=== PATIENT | male | born 1965 | race Caucasian/White ===

== ENCOUNTER 2018-11-05 01:00 | Inpatient (IN) | payer BC ==
[2018-11-05] VITALS (8 sets, daily range): BP systolic 109–141; BP diastolic 60–80
[~2018-11-05] VITALS: Ht 177.8 cm; Wt 88.5 kg
[2018-11-05 01:28] LABS: BASOPHILS # (AUTO) 0.1 (0.0-0.1); BASOPHILS % 0.9 % (0.0-1.0); EOSINOPHILS # (AUTO) 0.6 (0.0-0.4); EOSINOPHILS % 4.1 % (0.0-6.0); HEMATOCRIT 45.7 % (38.2-49.6); HEMOGLOBIN 17.1 g/dL (14.0-18.0); LYMPHOCYTES # (AUTO) 3.6 (1.0-3.2); LYMPHOCYTES % 26.6 % (18.0-39.1); MEAN CORPUSCULAR HEMOGLOBIN 32.6 pg (28-32); MEAN CORPUSCULAR HGB CONC 37.4 g/dL (31-35); MEAN CORPUSCULAR VOLUME 87.2 fL (81-99); MONOCYTES # (AUTO) 1.2 (0.2-0.8); MONOCYTES % 8.6 % (4.4-11.3); NEUTROPHILS % 59.5 % (38.7-80.0); PLATELET COUNT 271 x10e3/uL (140-360); RED BLOOD COUNT 5.24 x10e6/uL (4.3-5.7); RED CELL DISTRIBUTION WIDTH 12.9 % (11.7-14.4)
[2018-11-05] MEDS ORDERED: ASPIRIN 81 MG CHEW TAB PO ONE (01:30)
[2018-11-05 01:47] LABS: ALANINE AMINOTRANSFERASE 37 IU/L (0-55); ALBUMIN 3.9 g/dL (3.5-5.0); ALBUMIN/GLOBULIN RATIO 1.1 (0.8-2.0); ALKALINE PHOSPHATASE 94 IU/L (40-150); ANION GAP 14.9 mmol/L (8-16); BLOOD UREA NITROGEN 10 mg/dL (7-26); BUN/CREATININE RATIO 11 (6-25); CALCIUM 9.1 mg/dL (8.4-10.2); CARBON DIOXIDE 24 mmol/L (22-29); CHLORIDE 106 mmol/L (98-107); CREATINE KINASE 49 IU/L (30-200); EST GLOMERULAR FILTRATION RATE > 60 ML/MIN (60-); GLUCOSE 96 mg/dL (74-118); POTASSIUM 3.9 mmol/L (3.5-5.1); SODIUM 141 mmol/L (136-145)
[2018-11-05 01:51] LABS: CREATINE KINASE MB < 1.00 ng/mL (0-4.3)
--- NOTE | 2018-11-05 02:23 | NUR ---
RESTING WITH EYES CLOSED, EASILY AROUSED, NAD NOTED. FAMILY AT BEDSIDE
--- NOTE | 2018-11-05 02:29 | Diagnostic Imaging Report ---
EXAMINATION: Head CT without contrast. HISTORY:Right upper extremity numbness. COMPARISON:None. TECHNIQUE: Multidetector axial images were obtained from the foramen magnum to the vertex without contrast. The images were reconstructed using brain and bone algorithms. Thin section brain images were reformatted into coronal and sagittal planes. Dose modulation, iterative reconstruction, and/or weight based adjustment of the mA/kV was utilized to reduce the radiation dose to as low as reasonably achievable. Intravenous contrast: None IMAGE QUALITY: Suboptimal evaluation particularly of the skull base and posterior fossa structures due to streak artifacts. FINDINGS: Skull/scalp: No lytic or blastic. lesions. No surgical changes. Parenchyma: Focal hypodensity in right caudate head represents old lacunar infarct. No acute hemorrhage, mass or acute major vascular territorial infarct. Arteries: No density suggestive of thrombosis. Dural sinuses: No abnormal density suggestive of thrombosis. Ventricles: No hydrocephalus or displacement. Extra-axial spaces: No abnormal density. Brain volume: Normal for age. Craniocervical junction: No mass, Chiari malformation, or basilar invagination. Sella: No mass. Paranasal/mastoid sinuses: Imaged portions unremarkable. IMPRESSION: No acute intracranial abnormality, particularly no acute hemorrhage, mass or acute major vascular territorial infarct. Old lacunar infarct in right caudate head. Signed by: Dr. Taylor Bobby M.D. on 11/05/2018 2:25 AM
--- NOTE | 2018-11-05 02:33 | Diagnostic Imaging Report ---
History: Right upper extremity numbness. Comparison studies: None Technique: Axial images were obtained through the cervical region.. Coronal and sagittal images reconstructed from the axial data. Dose modulation, iterative reconstruction, and/or weight based adjustment of the mA/kV was utilized to reduce the radiation dose to as low as reasonably achievable. Intravenous contrast: None Findings: Fractures: None. Soft tissue injuries: None. Atlantoaxial articulation: Intact. Alignment: Loss of normal cervical lordosis is either positional or due to muscle spasm. No scoliosis. Cervicomedullary junction: No abnormalities. The foramen magnum is patent. Soft tissues: No abnormalities. Vertebrae: 6 mm well-corticated osseous fragments superior to the tip of the odontoid process may represent a sequelae of prior trauma/os odontoideum. No fractures, infection or neoplasm. Degenerative changes: C3-C4: Bilateral mild facet arthrosis without significant foraminal stenosis. No significant canal or foraminal stenosis. IMPRESSION: 1. No acute cervical spine fracture or dislocation. Loss of normal cervical lordosis is either positional or due to muscle spasm. 2. Ligament, spinal cord and or vascular abnormalities cannot be excluded on the basis of this examination. Signed by: Dr. Taylor Bobby M.D. on 11/05/2018 2:29 AM
--- NOTE | 2018-11-05 03:01 | NUR ---
attempted to call report without success
--- NOTE | 2018-11-05 03:30 | NUR ---
RECEIVED PATIENT FROM ER, AAOX4, AMBULATORY STEADY GAIT. RESP EVEN AND UNLABORED, RA. LUNGS CLEAR TO AUSCULTATION. SKIN INTACT. PULSES INTACT. NO EDEMA NOTED. DENIES PAIN. ADMITTED FOR RIGHT UPPER EXTREMITY WEAKNESS & NUMBNESS. BILAT. 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 TELE #22 SB 57 TO SR 63. PATENT IV TO LEFT FA 20G. UPDATED PATIENT TO PLAN OF CARE, VERBALIZED UNDERSTANDING. BED LOCKED, LOWEST POSITION, CALL LIGHT WITHIN EASY REACH. WILL CONTINUE TO MONITOR THE PATIENT CLOSELY.
[2018-11-05] MEDS ORDERED: MELATONIN3 MG PO (04:38)
--- NOTE | 2018-11-05 07:14 | NUR ---
Received patient and walking rounds complete. Patient awake resting in bed at this time, no signs of distress. Bed in lowest position, wheels locked, side rails up x2, call light in reach. at bedside. Will continue to monitor.
[2018-11-05 07:22] LABS: CHOL/HDL RATIO 5.3 (3.9-4.7)
--- NOTE | 2018-11-05 09:47 | NUR ---
Patient A/O X3, respirations even and unlabored on RA. Bowel sounds active, last BM 11/04/18. No complaint of pain at this time. Severe weakness in RUE. Patient states that he has tingling in RUE. Unsteady gait at this time. Skin intact and no edema. Left FA 20 gauge IV SL. Will continue to monitor.
--- NOTE | 2018-11-05 11:01 | NUR ---
Patient went to MRI at this time. No unsteady gait at the time of transfer to wheelchair.
[2018-11-05] MEDS ORDERED: LORAZEPAM INJ 2 MG/ML VIAL IV NR (11:30)
--- NOTE | 2018-11-05 12:48 | NUR ---
Patient returned from MRI
--- NOTE | 2018-11-05 14:58 | Diagnostic Imaging Report ---
[facility] 1965 Accession number: [id number] MRI BRAIN WO HISTORY: Right arm numbness COMPARISON: Head CT 11/05/2018 at 144 TECHNIQUE: Sagittal T2, axial T2, axial T1, axial T2/FLAIR, axial gradient echo (or susceptibility weighted), coronal T2/FLAIR, and axial diffusion weighted MR images of the brain were obtained without contrast. DISCUSSION: Scalp/bone marrow: Unremarkable. Brain sulci: Appropriate for patient's age. Ventricles: Normal in size and configuration. No hydrocephalus. Extra-axial spaces: No masses or fluid collections. Parenchyma: Multiple small juxtacortical foci of diffusion restriction (bright on DWI, dark on ADC) along the upper left perirolandic region and left centrum semiovale compatible with acute ischemia. This is in the left MCA-NATHAN external border zone. No other diffusion restricting abnormalities. A few scattered T2/FLAIR hyperintense foci throughout the supratentorial white matter are likely chronic microvascular ischemic changes. There is an old lacunar infarct in the right benz radiata. There is also an old lacunar infarct in the right frontal deep white matter. Otherwise, no mass or hemorrhage. Vessels: Normal flow voids in major arteries and veins. Sellar/Suprasellar region: No abnormalities. Craniocervical junction: No abnormalities. Incidental findings: Mild bilateral ethmoid air cell mucosal thickening is present. IMPRESSION: 1. Multifocal juxtacortical acute watershed ischemia along the upper left perirolandic region and left centrum semiovale (left MCA-NATHAN external border zone). 2. Mild supratentorial chronic microvascular ischemic change. 3. Old right benz radiata and right frontal deep white matter lacunar infarcts. Signed by: Dr. Adam Gilliland M.D. on 11/05/2018 2:54 PM
--- NOTE | 2018-11-05 14:58 | Diagnostic Imaging Report ---
Pelon [place] : 1965 Accession number: [id number] MRA CAROTID WO CONTRAST HISTORY: Right arm numbness COMPARISON: Concurrent MRI of the brain, head CT 11/05/2018 TECHNIQUE: Axial 2-D cervical intracranial [id number]-zcyzov MRA images were obtained without contrast. Maximum intensity projection images were created. If present, any cervical carotid stenosis will be measured as a percentage relative to the [place] artery distal to the stenosis. FINDINGS: Right Carotid: No flow abnormalities. Left Carotid: No flow abnormalities. Right vertebral artery: No flow abnormalities. Left vertebral artery: No flow abnormalities. IMPRESSION: No cervical MRA abnormalities. Signed by: Dr. Adam Gilliland M.D. on 11/05/2018 2:54 PM
--- NOTE | 2018-11-05 14:58 | Diagnostic Imaging Report ---
Pelon [place] : 1965 Accession number: [id number] MRI CERV SPINE W/O HISTORY: Right arm numbness COMPARISON: Cervical spine CT 11/05/2018 TECHNIQUE: Sagittal T1, sagittal T2, sagittal inversion recovery, axial T2, axial T1, and axial T2 GRE weighted MR images of the cervical spine were obtained without intravenous contrast. Motion artifacts obscure some details. DISCUSSION: Alignment: Slight straightening of the cervical lordosis. No scoliosis. Vertebrae: No definite evidence for fractures, infection, or neoplasm. Cervicomedullary junction: No abnormalities. Spinal cord: Normal in signal and morphology from the foramen magnum through T2-T3. Soft tissues: No signal abnormalities. Mild multilevel disc degeneration is present without significant canal or foraminal stenosis. Mild to moderate atlantoaxial arthrosis is present as well. IMPRESSION: 1. No acute osseous abnormality. 2. Mild multilevel disc degeneration without significant canal or foraminal stenosis. Signed by: Dr. Adam Gilliland M.D. on 11/05/2018 2:55 PM
--- NOTE | 2018-11-05 14:58 | Diagnostic Imaging Report ---
Pelon Canada : 1965 Accession number: [id number] MRA HEAD WO CONTRAST HISTORY: Right arm numbness COMPARISON: Concurrent MRI of the brain and MRA of the neck TECHNIQUE: Axial 3D intracranial [id number] MRA images were obtained without contrast. Maximum intensity projection images were created. FINDINGS: Carotid arteries: No flow abnormalities in the intracranial internal carotid arteries. Normal A1 and M1 segments. Vertebrobasilar Circulation: Right vertebral artery: No flow abnormalities. Left vertebral artery: No flow abnormalities. Basilar artery: No flow abnormalities. Posterior cerebral arteries: No flow abnormalities. Normal Variants: ACom: Not clearly visualized. PComs: Not visualized. Vertebral arteries: Co-dominant. IMPRESSION: No intracranial MRA abnormalities. Signed by: Dr. Adam Gilliland M.D. on 11/05/2018 2:54 PM
[2018-11-05] MEDS ORDERED: ENOXAPARIN SOD INJ 40 MG/0.4 ML SYR SC SCH (17:00)
[2018-11-05] MEDS: FAMOTIDINE 20 MG TAB PO SCH (17:04)
[2018-11-05] MEDS ORDERED: SODIUM CHLORIDE 0.9% 100 ML 100 ML ONE (17:16)
[2018-11-05] MEDS ORDERED: IOPAMIDOL 370 MG/ML 200 ML INFUS..BTL INJ ONE (17:16)
--- NOTE | 2018-11-05 17:51 | Consultation ---
DATE OF CONSULTATION: November 05, 2018 NEUROLOGY CONSULTATION HISTORY OF PRESENT ILLNESS: Mr. Canada is a 52-year-old right hand dominant man with past medical history significant for a prior history of hyperlipidemia as well as a questionable myocardial infarction in 2007, admitted to [facility] on November 05, 2018 with symptoms suspicious for a stroke. Beginning on November 03, 2018, the patient began to experience intermittent numbness affecting the 4th and 5th digits of the right hand. When present, the numbness would last for a few minutes at a time. Some time between 1800 and 1900 on November 04, 2018, the patient experienced the sudden onset of weakness affecting the right hand. Specifically, Mr. Canada report difficulty extending and flexing his fingers. The patient's , who is at the bedside, reports right arm weakness as well. She says his arm seemed to flail when he moved it. She reports the patient dropping items frequently from his right hand as well. Mr. Canada reports numbness affecting all fingers of the right hand as well as tingling in the same distribution. Subsequently, the patient's noted Mr. Canada was having some difficulty with walking. She reports he appeared to be dragging his right leg behind him. After these symptoms persisted for a few hours, the patient proceeded to the emergency center at [facility] for further evaluation of his symptoms. Upon arrival in the emergency center, the patient was afebrile with a blood pressure of 156/87 mmHg and a pulse of 61 beats per minute. Patient's neurological examination was documented as showing claw hand on the right, unable to make fist, soft compartments. A CT of the brain without contrast was performed while the patient was in the emergency center. This study did not show evidence of recent large territorial ischemia or hemorrhage. Mr. Canada was admitted to [facility] as an inpatient for further evaluation of his symptoms. The patient does not report experiencing similar symptoms previously. He is not currently taking antiplatelet or anticoagulant medication on a daily basis. REVIEW OF SYSTEMS: Weakness of the right arm and leg, numbness and tingling of the right arm and leg, impairment of balance and gait. Otherwise, the 12-point review of systems is negative. PAST MEDICAL HISTORY: Prior history of hyperlipidemia, questionable prior myocardial infarction in 2007. PAST SURGICAL HISTORY: Cardiac catheterizations in 2007, vasectomy in 2001, tonsillectomy. PAST HOSPITALIZATIONS: Surgeries/procedures as listed, chest pain. FAMILY MEDICAL HISTORY: The patient's paternal and maternal grandparents are . Their medical histories are unknown. The patient's father is from coronary artery disease with myocardial infarctions. Mr. Canada's mother is alive. She has hypertension, congestive heart failure, emphysema, chronic obstructive pulmonary disease, and osteoporosis. The patient had 4 siblings, 3 brothers and 1 sister. One brother is from coronary artery disease with a myocardial infarction. The remaining 2 brothers are alive and both have hypertension. One brother has heart disease as well. The patient's sister is alive and has hypertension and chronic obstructive pulmonary disease. Mr. Canada has 2 children, a son and a daughter, both of whom are alive and healthy. SOCIAL HISTORY: The patient is . 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 The patient does report current tobacco use. He previously smoked cigarettes 1 pack per day. Over the last 1 to 2 years, the patient has began to smoke cigars 2 per day. Overall, the patient has been approximately [id number] history of tobacco use. Mr. Canada reports occasional alcohol use. He does not report current or prior recreational drug use. HOME MEDICATIONS: Melatonin 9 mg by mouth at bedtime as needed for insomnia. ALLERGIES: PENICILLIN. NO KNOWN FOOD ALLERGIES. NO KNOWN ALLERGIES TO LATEX. NO KNOWN ALLERGIES TO IODINE OR OTHER CONTRAST MATERIALS. PHYSICAL EXAMINATION VITAL SIGNS: Height 70 inches, weight 199 pounds, BMI 28.6 kg per meter squared. Blood pressure 128/66 mmHg, pulse 56 beats per minute, respiratory rate 18 breaths per minute, oxygen saturation 96% on room air. GENERAL: The patient is awake and alert, does not appear distressed. Overweight. HEENT: Normocephalic, atraumatic. Pupils are equal, round, and reactive to light. Moist mucous membranes. NECK: Supple. No appreciable thyromegaly. Possible left carotid bruit. CARDIOVASCULAR: S1, S2, regular rate and rhythm. No murmurs, rubs, or gallops. RESPIRATORY: Clear to auscultation bilaterally. No wheezes, rhonchi, or rales. EXTREMITIES: Skin is warm and dry. No clubbing, cyanosis, or edema. The posterior tibial and dorsalis pedis pulses are 2+ and symmetric. SKIN: No rashes or lesions. NEUROLOGIC Memory/Attention: The patient is awake and alert, oriented to person, place, time, and situation. Cranial Nerves: Cranial nerve 1 - Not tested. Cranial nerve II, III, IV, and - Pupils are equal and round, react briskly to light (from 4 mm to 2 mm). Extraocular movements intact. No nystagmus. Cranial nerve V - Sensation to light touch and pinprick is intact in the bilateral V1 through V3 distributions. Strength of the temporalis and masseter muscles is within normal limits. Cranial nerve VII - The face is symmetric as are all facial movements. Strength is within normal limits. Cranial nerve VIII - Hearing is intact to finger rub bilaterally. Cranial nerve IX, X - The soft palate elevates equally and symmetrically. Cranial nerve XI - Normal strength of the bilateral sternocleidomastoid and trapezius muscles. Cranial nerve XII - The tongue protrudes midline and moves symmetrically from side to side. Strength: Bulk is normal. Strength is 5/5 in the bilateral deltoids, biceps, triceps, wrist flexors and extensors, finger flexors and extensors, intrinsic hand muscles, hip flexors, knee flexors and extensors, ankle dorsiflexion and plantar flexion, and intrinsic foot muscles except as follows: The right biceps is 4/5, the right triceps is 3+/5, right wrist flexors are 3+/5, right wrist extensors are 3/5, right finger flexors are 3+/5, right finger extensors are 3/5. Tone is normal. DTRs: Deep tendon reflexes are 2+ at the left triceps, biceps, brachioradialis, patella, and Achilles. Deep tendon reflexes are 3+ at the right triceps, biceps, brachioradialis, patella, and Achilles. Plantar responses are flexor bilaterally. Sensation: Sensation is intact to light touch and pinprick in the left arm and left leg. There is tingling to light touch and pinprick over the right arm and right leg. Cerebellar: Umacjr-gjwq-zvksda movements are mildly impaired in the right arm, but within the bound of paresis. Otherwise, ovmnmz-ppcd-xlupwc and heel-robbins movements are intact without dysmetria or other impairment. Gait: Deferred. Speech: Spontaneous speech is normal without appreciable dysarthria or aphasia. Repetition is not intact. Involuntary Movements: None. Pronator Drift: Subtle in the right hand and arm. LABORATORY DATA: The patient's comprehensive metabolic panel is within normal limits. His hemoglobin A1c is 5.1. Total cholesterol 180, triglycerides 245, LDL cholesterol 97, HDL cholesterol 34. Vitamin B12 of 47. The CBC with differential and platelets reveals an elevated white blood cell count of 13.36 with a normal differential. The hemoglobin and hematocrit are 17.1 and 45.7. The platelet count is 271. DIAGNOSTIC STUDIES: CT of the brain without contrast on November 05, 2018: On my review, there is no evidence of recent large territorial ischemia, hemorrhage, mass, or mass effect. Prior lacunar infarct is seen in the right caudate head. Cerebral volumes are appropriate for age. There are findings suggestive of mild chronic small vessel ischemic disease. CT of the cervical spine on November 05, 2018: 1. No acute cervical spine fracture or dislocation. Loss of normal cervical lordosis is either positional or due to muscle spasm. 2. Ligament, spinal cord, and/or vascular abnormalities cannot be excluded on the basis of this examination. MRI of the brain without contrast: On my review, there is evidence of an acute ischemic stroke in the left anterior middle cerebral artery distribution. Prior lacunar strokes are seen in the right caudate head as well as the right posterior frontal region. Cerebral volumes are appropriate for age. There are few scattered T2/FLAIR hyperintense foci in the supratentorial deep white matter compatible with mild chronic small vessel ischemic disease. MRA of the brain and neck without contrast on November 05, 2018: On my review, there is an intra and extracranial atherosclerosis with possible hemodynamically significant stenosis, especially of the left internal carotid artery. MRI of the cervical spine without contrast on November 05, 2018: On my review, there is no evidence of acute fracture or subluxation. There is mild multilevel degenerative disk disease without spinal canal stenosis or neural foraminal narrowing. Echocardiogram on November 05, 2018: Ejection fraction 65% to 70%. Trace tricuspid regurgitation. ASSESSMENT AND PLAN: Mr. Canada is a 52-year-old right hand dominant man with past medical history significant for a prior history of hyperlipidemia, a questionable prior myocardial infarction in 2007, and tobacco use, admitted with an acute ischemic stroke in the left anterior middle cerebral artery distribution with cortical involvement. The patient's neurological examination is significant for mild weakness of the left hand and arm, brisk deep tendon reflexes over the right hemibody, and distortion of sensation over the right arm and leg. The patient's laboratory data and other diagnostic studies have been reviewed and are documented above. RECOMMENDATIONS 1. Follow up the results of pending MRI studies. 2. An electrocardiogram will be ordered to complete a stroke evaluation. 3. A CTA of the brain and neck with contrast will be ordered for further evaluation of intra and extracranial atherosclerosis with possible hemodynamically significant stenosis. 4. Aspirin 325 mg by mouth daily will be prescribed for stroke prophylaxis. 5. There is no prior history of hypertension. Monitor the patient's vital signs per unit protocol. 6. The patient's goal total cholesterol is less than 200 with a LDL of less than 70. The patient's LDL is 97. I agree with treatment with atorvastatin 40 mg by mouth at bedtime daily. A lipid panel should be redrawn in 8 weeks. 7. The patient's goal hemoglobin A1c is less than 7.0. The patient's hemoglobin A1c is 5.1. Tight glycemic control is recommended while the patient is in the hospital. 8. A speech therapy consultation will be deferred as the patient has no deficits in either speech or cognition. A physical therapy consultation has been ordered and is pending. Mr. Canada will require occupational therapy once discharged from the hospital. 9. GI prophylaxis with Pepcid 20 mg by mouth twice daily with meals. DVT prophylaxis with Lovenox 40 mg subcutaneously daily. 10. Smoking cessation counseling was provided to the patient. 11. Defer treatment of the remaining medical comorbidities to the primary and other services following the patient. Thank you for this consultation. I will continue to follow the patient while he remains in the hospital. TIME SPENT: 70 minutes. Job#: [id number] ELPIDIO AUGUSTINE
--- NOTE | 2018-11-05 18:35 | Diagnostic Imaging Report ---
CTA BRAIN, CTA NECK HISTORY: Right-sided numbness COMPARISON: MRI of the brain and MRA of the head/neck from earlier today TECHNIQUE: CTA of the head and neck was performed with intravenous iodine based contrast. Coronal, sagittal, 3-D, and oblique maximum intensity projection reformations were created. One or more of the following dose reduction techniques were used: Automated exposure control, adjustment of the mA and/or kV according to patient size, and/or utilization of iterative reconstruction technique. 100 mL of Isovue-370 were administered. DISCUSSION: If present, any cervical carotid stenosis will be measured as a percentage relative to the [place] artery distal to the stenosis. CERVICAL CTA: Right Carotid: There is mild noncalcified plaque at the right carotid bulb without significant stenosis. Left Carotid: Patent, no abnormalities. Right vertebral artery: Patent, no abnormalities. Left vertebral artery: Patent, no abnormalities. INTRACRANIAL CTA: Carotid arteries: Minimal bilateral carotid siphon calcification is present without significant stenosis. No abnormalities in the A1 or M1 segments. Vertebrobasilar Circulation: Right vertebral artery: Patent, no abnormalities. Left vertebral artery: Patent, no abnormalities. Basilar artery: Patent, no abnormalities. Posterior cerebral arteries: Patent, no abnormalities. Normal Variants: ACom: Patent. PComs: Patent on the right. Not visualized on the left. Vertebral arteries: Co-dominant. The major dural venous sinuses are grossly patent. Additional findings: The lingual tonsils are prominent. There are mild to moderate degenerative changes throughout the spine. IMPRESSION: 1. Mild right carotid bulb noncalcified plaque without significant stenosis. 2. Minimal bilateral carotid siphon calcification without significant stenosis. 3. No other cervical or intracranial CTA abnormalities. No large vessel occlusion. Signed by: Dr. Adam Gilliland M.D. on 11/05/2018 6:31 PM
--- NOTE | 2018-11-05 19:24 | NUR ---
RECEIVED PATIENT AAOX3, AT BEDSIDE. ORIENTED TO SELF. UPDATED TO PLAN OF CARE. AT THIS TIME NO NEEDS VOICED. BED LOCKED AND IN LOWEST POSITION, CALL LIGHT WITHIN EASY REACH. WILL CONTINUE TO MONITOR PATIENT.
[2018-11-05] MEDS ORDERED: ATORVASTATIN 40 MG TAB PO SCH (21:00)
[2018-11-06 00:57] VITALS: BP 126/57
--- NOTE | 2018-11-06 01:29 | History and Physical ---
CHIEF COMPLAINT: This is a 52-year-old male, who comes in with right hand and arm weakness and numbness. HISTORY OF PRESENTING ILLNESS: This is . 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 The patient had a similar symptom about a week ago, which rapidly dissipated yesterday. Last night, the patient had the same symptoms, came home and reportedly was confused and was not coherent, drove home by himself. The patient was not able to control his right upper extremities and came into the emergency room and was admitted to rule out CVA. PAST MEDICAL HISTORY: No significant history. MEDICATIONS: Melatonin. PAST SURGICAL HISTORY: Vasectomy. SOCIAL HISTORY: Positive for smoking cigars about 2 a day. No ETOH. No IV drug abuse. REVIEW OF SYSTEMS: Negative for chest pain. No shortness of breath. No nausea, vomiting, or diarrhea. No constipation. No rectal bleeding. No hematochezia. No hematemesis. Positive for headache. No diplopia. No blurry vision. Positive for paresthesias in the right upper extremities, also in the lower extremities as time to time, the patient does complain of numbness in the lower extremities, especially the right on crossing his legs and this has been happening for years. PHYSICAL EXAMINATION VITAL SIGNS: Temperature is 96.6, pulse of 63, respirations 18, blood pressure is 141/80, pulse oximetry is 97% on room air. HEENT: Normocephalic. Pupils are reactive to light and accommodation. NECK: No JVD present. No carotid bruit present either. CVS: S1, S2 normal. Regular rate and rhythm. ABDOMEN: Nontender and nondistended. EXTREMITIES: No clubbing. No cyanosis. No edema. NEUROLOGIC: Alert and oriented x3. Mood and affect is normal. Speech is normal. Cranial nerve normal. No cerebellar signs. Positive for sensory and motor deficit in the right upper extremities. 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 Reflexes are hyperreflexic in the right side; otherwise normal. Deficit is also noted in the forearm area too. IMAGING STUDIES: Initial CT of the brain shows no acute intracranial abnormalities, particularly no acute hemorrhage, mass, or acute major vascular territorial effect. C-spine shows 6 mm well-corticoid osseous fragments . No fractures. Degenerative changes in C3 and C5 and no acute cervical spine fracture or dislocation seen and also loss of normal cervical lordosis also seen. LABORATORY VALUES: White count is 13,000, hemoglobin is 17.1, hematocrit 45.7, slight left shift is present. Chemistry; sodium 141, potassium 3.9, BUN of 10, creatinine of 0.90. ALT and AST all normal. ASSESSMENT AND PLAN: Right hand paresthesias with loss of function. Plan is to do an MRA of the brain, MRI of the C-spine with contrast. We will also complete stroke workup including an echocardiogram and also MRI of the neck. We will also consult Dr. Tatyana Chowdhury, possible consult with in lieu of his paresthesias in the upper extremities. Further recommendation per clinical course. We will continue monitoring the patient. The patient has been constantly smoking and healthy lifestyle. Job#: [id number] HENRIQUE
[2018-11-06 04:00] VITALS: BP 108/67
--- NOTE | 2018-11-06 04:22 | NUR ---
patient aaox3, standby assist to restroom. denies any needs at this time. denies any pain. assisted back to bed. bed locked and in lowest position, call light within easy reach. will continue to monitor the patient.
[2018-11-06 05:44] LABS: BASOPHILS # (AUTO) 0.1 (0.0-0.1); BASOPHILS % 0.6 % (0.0-1.0); EOSINOPHILS # (AUTO) 0.5 (0.0-0.4); EOSINOPHILS % 4.1 % (0.0-6.0); HEMATOCRIT 47.6 % (38.2-49.6); HEMOGLOBIN 16.3 g/dL (14.0-18.0); LYMPHOCYTES # (AUTO) 3.1 (1.0-3.2); LYMPHOCYTES % 27.5 % (18.0-39.1); MEAN CORPUSCULAR HEMOGLOBIN 30.8 pg (28-32); MEAN CORPUSCULAR HGB CONC 34.2 g/dL (31-35); MONOCYTES # (AUTO) 1.2 (0.2-0.8); MONOCYTES % 10.2 % (4.4-11.3); NEUTROPHILS # (AUTO) 6.5 (2.1-6.9); NEUTROPHILS % 57.2 % (38.7-80.0); PLATELET COUNT 293 x10e3/uL (140-360); RED BLOOD COUNT 5.29 x10e6/uL (4.3-5.7); RED CELL DISTRIBUTION WIDTH 12.9 % (11.7-14.4)
[2018-11-06 06:16] LABS: ALANINE AMINOTRANSFERASE 38 IU/L (0-55); ALBUMIN 3.7 g/dL (3.5-5.0); ALBUMIN/GLOBULIN RATIO 1.2 (0.8-2.0); ALKALINE PHOSPHATASE 92 IU/L (40-150); BLOOD UREA NITROGEN 11 mg/dL (7-26); BUN/CREATININE RATIO 10 (6-25); CALCIUM 9.2 mg/dL (8.4-10.2); CARBON DIOXIDE 25 mmol/L (22-29); CHLORIDE 106 mmol/L (98-107); CREATININE, SERUM 1.08 mg/dL (0.72-1.25); EST GLOMERULAR FILTRATION RATE > 60 ML/MIN (60-); GLUCOSE 122 mg/dL (74-118); MAGNESIUM 2.6 MG/DL (1.3-2.1); SODIUM 141 mmol/L (136-145)
[2018-11-06 08:04] VITALS: BP 123/68
[2018-11-06] MEDS: FAMOTIDINE 20 MG TAB PO SCH (08:30)
[2018-11-06 08:46] VITALS: BP 123/68
[2018-11-06] MEDS ORDERED: ASPIRIN 325 MG TAB EC PO SCH (09:00)
--- NOTE | 2018-11-06 10:45 | NUR ---
ASSESSMENT: Spiritual concern Pt curious about future. Pt states he isn't certain of what's next to come. Pt hopeful for soon d/c and recovery. Pt's at bedside. Intervention: Provided empathic listening. Facilitated illness review. Provided information on how to reach appraisal manager, if needed. Outcome: Pt expressed appreciation for visit. CARIN OGDEN Fish Cleaner Machine Tender Spiritual Care Department O: [phone] Pager: [phone] ([phone] number calling from)
--- NOTE | 2018-11-06 11:41 | NUR ---
PT REPORTED "NUMBNESS TO RIGHT EYE AND SIDE OF FACE, CHEEK", INTERMITTENT, "CAME AND WENT ", EDUCATED TO NOTIFY NURSE IF HAPPENS AGAIN
--- NOTE | 2018-11-06 11:48 | NUR ---
AMBULATING WITH PHYSICAL THERAPIST AT THIS TIME
[2018-11-06 12:42] VITALS: BP 143/74
--- NOTE | 2018-11-06 12:42 | NUR ---
MD DRUMMOND INTO SEE PT, DISCUSSED POC, SPOKE WITH MD DAWSON, MADE AWARE THAT MD DRUMMOND IS OKAY TO DISCHARGE, ORDERS NOTED Addendum: 11/06/18 at 1354 by Katrin Torres RN MD DRUMMOND AWARE OF PT C/O NUMBNESS TO FACE AND EYE, NO NEW ORDERS
[2018-11-06] MEDS ORDERED: ASPIRIN325 MG PO (13:15)
[2018-11-06] MEDS ORDERED: ATORVASTATIN CA20 MG PO (13:15)
--- NOTE | 2018-11-06 13:57 | NUR ---
DISCHARGE INSTRUCTIONS REVIEWED WITH PT, VERBALIZED UNDERSTANDING, AWAITING RIDE
--- NOTE | 2018-11-06 16:02 | NUR ---
DISCHARGE INSTRUCTIONS REVIEWED WITH PT AND FAMILY, VERBALIZED UNDERSTANDING, WHEELED OFF UNIT VIA WC, NO CHANGE IN CONDITION
== END 2018-11-06 14:47 | disposition home or self-care (01) | DRG 66 ==
LOC: ER 01:00 → ERHOLD 02:36 → INTOOBSV 02:36 → MED/SURG 03:28 → OBSVTOIN 11-06 12:31
PROVIDERS: ADMIT Internal Medicine; ATTEND Internal Medicine
DX: I63.512 Cerebral infarction due to unspecified occlusion or stenosis of left middle cerebral artery (principal); G83.24 Monoplegia of upper limb affecting left nondominant side; R20.8 Other disturbances of skin sensation; E78.5 Hyperlipidemia, unspecified; F17.290 Nicotine dependence, other tobacco product, uncomplicated; I25.2 Old myocardial infarction; Z79.82 Long term (current) use of aspirin; Z88.0 Allergy status to penicillin; Z28.21 Immunization not carried out because of patient refusal
CPT/HCPCS: 36415; 70450; 70496; 70498; 70540; 70544; 70551; 72125; 72141; 80053; 80061; 82550; 82553; 82607; 83036; 83735; 84484; 85025; 93005; 93306; 99284; G0378; J1650; J2060; Q9967

== ENCOUNTER → 2018-12-07 | Outpatient (RCR) | payer BC ==
[~2018-12-07] MED LIST: ASPIRIN325 MG PO; ATORVASTATIN CA20 MG PO; MELATONIN3 MG PO
== END ==
LOC: PT 11-13 10:02 → OT 11-14 14:54 → PT 11-27 15:50 → OT 12-01 10:00 → PT 12-05 09:42 → OT 12-06 14:58 → PT 10:00
PROVIDERS: ATTEND Psychiatry & Neurology Clinical Neurophysiology
DX: I63.512 Cerebral infarction due to unspecified occlusion or stenosis of left middle cerebral artery (principal); G83.24 Monoplegia of upper limb affecting left nondominant side; R20.8 Other disturbances of skin sensation

== ENCOUNTER 2018-12-15 09:00 | Outpatient (RCR) | payer BC | END 2019-01-07 | LOC: OT 09:00 | PROVIDERS: ATTEND Psychiatry & Neurology Clinical Neurophysiology | DX: I69.851 Hemiplegia and hemiparesis following other cerebrovascular disease affecting right dominant side (principal); I69.351 Hemiplegia and hemiparesis following cerebral infarction affecting right dominant side; M62.81 Muscle weakness (generalized) | CPT/HCPCS: 97139 ==

== ENCOUNTER → 2018-12-20 | Outpatient (CLI) | payer BC ==
[2018-12-20 12:10] LABS: CHOL/HDL RATIO 3.3 (3.9-4.7)
== END ==
LOC: LAB 11:32
PROVIDERS: ATTEND Psychiatry & Neurology Clinical Neurophysiology
DX: I63.312 Cerebral infarction due to thrombosis of left middle cerebral artery (principal)
CPT/HCPCS: 36415; 80061

== ENCOUNTER → 2019-03-27 | Day surgery (SDC) | payer BC ==
[~2019-03-27] MED LIST changes: +BUPIVACAINE HCL 0.5% INJ 30 ML VIAL INJ ONE; +CLINDAMYCIN PHOS 900MG/ 50ML 50 ML IV ONE; +DEXAMETHASONE SOD PHOS INJ 4 MG/ML VIAL ONE; +FENTANYL CITRATE/PF 100MCG/2 ML INJ ONE; +LIDOCAINE HCL 2% LOCAL INJ 5 ML SDV VIAL INJ ONE; +MIDAZOLAM HCL 2 MG/2 ML VIAL ONE; +ONDANSETRON HCL INJ 2MG/ML 2ML 2 MG/ML VIAL ONE; +PROPOFOL IV EMULSION 10 MG/ML 20 ML VIAL ONE; +SEVOFLURANE INHAL SOLN 250 ML PEN BTL ONE
--- OUTSIDE RECORDS SUMMARY | 2019-03-27 05:21 | XMS REPORT ---
Author Author [facility] Address Unknown Phone Unavailable Care Team Providers Care Edge Bonder Name Role Phone JESISusan ABEBE Unavailable Unavailable Problems This patient has no known problems. Allergies, Adverse Reactions, Alerts This patient has no known allergies or adverse reactions. Medications This patient has no known medications. Results Test Description Test Time Test Comments Text Results Atomic Results Result Comments CTA NECK 2018-11-05 18:20:00 [place] [address] Patient Name: JESI CANADA MR #: [id number] : 1965 Age/Sex: 52/M Req #: [id number] Adm Physician: ABEBE DENNISON MD Ordered by: ALEKSANDR DRUMMOND M.D. Report #: [id number] Location: MED/SURG Room/Bed: [facility] Procedure: [id number] CT/CTA NECK Exam Date: 11/05/18 Exam Time: 1650 REPORT STATUS: Signed CTA BRAIN, CTA NECK HISTORY: Right-sided numbness COMPARISON: MRI of the brain and MRA of the head/neck from earlier today TECHNIQUE: CTA of the head and neck was performed with intravenous iodine based contrast. Coronal, sagittal, 3-D, and oblique maximum intensity projection reformations were created. One or more of the following dose reduction techniques were used: Automated exposure control, adjustment of the mA and/or kV according to patient size, and/or utilization of iterative reconstruction technique. 100 mL of Isovue-370 were administered. DISCUSSION: If present, any cervical carotid stenosis will be measured as a percentage relative to the grayling artery distal to the stenosis. CERVICAL CTA: Right Carotid: There is mild noncalcified plaque at the right carotid bulb without significant stenosis. Left Carotid: Patent, no abnormalities. Right vertebral artery: Patent, no abnormalities. Left vertebral artery: Patent, no abnormalities. INTRACRANIAL CTA: Carotid arteries: Minimal bilateral carotid siphon calcification is present without significant stenosis. No abnormalities in the A1 or M1 segments. Vertebrobasilar Circulation: Right vertebral artery: Patent, no abnormalities. Left vertebral artery: Patent, no abnormalities. Basilar artery: Patent, no abnormalities. Posterior cerebral arteries: Patent, no abnormalities. Normal Variants: ACom: Patent. PComs: Patent on the right. Not visualized on the left. Vertebral arteries: Co-dominant. The major dural venous sinuses are grossly patent. Additional findings: The deisy gual tonsils are prominent. There are mild to moderate degenerative changes throughout the spine. IMPRESSION: 1. Mild right carotid bulb noncalcified plaque without significant stenosis. 2. Minimal bilateral carotid siphon calcification without significant stenosis. 3. No other cervical or intracranial CTA abnormalities. No large vessel occlusion. Signed by: Dr. Adam Gilliland M.D. on 11/05/2018 6:31 PM Dictated By: ADAM GILLILAND MD 30 Transcribed By: AMY on 11/05/181830 COPY TO: ALEKSANDR DRUMMOND MD CTA BRAIN 2018-11-05 18:20:00 [place] [address] Patient Name: JESI CANADA MR #: [id number] : 1965 Age/Sex: 52/M Req #: [id number] Adm Physician: ABEBE DENNISON MD Ordered by: ALEKSANDR DRUMMOND M.D. Report #: [id number] Location: MED/SURG Room/Bed: [facility] Procedure: [id number] CT/CTA BRAIN Exam Date: 11/05/18 Exam Time: 1650 REPORT STATUS: Signed CTA BRAIN, CTA NECK HISTORY: Right-sided numbness COMPARISON: MRI of the brain and MRA of the head/neck from earlier today TECHNIQUE: CTA of the head and neck was performed with intravenous iodine based contrast. Coronal, sagittal, 3-D, and oblique maximum intensity projection reformations were created. One or more of the following dose reduction techniques were used: Automated exposure control, adjustment of the mA and/or kV according to patient size, and/or utilization of iterative reconstruction technique. 100 mL of Isovue-370 were administered. DISCUSSION: If present, any cervical carotid stenosis will be measured as a percentage relative to the grayling artery distal to the stenosis. CERVICAL CTA: Right Carotid: There is mild noncalcified plaque at the right carotid bulb without significant stenosis. Left Carotid: Patent, no abnormalities. Right vertebral artery: Patent, no abnormalities. Left vertebral artery: Patent, no abnormalities. INTRACRANIAL CTA: Carotid arteries: Minimal bilateral carotid siphon calcification is present without significant stenosis. No abnormalities in the A1 or M1 segments. Vertebrobasilar Circulation: Right vertebral artery: Patent, no abnormalities. Left vertebral artery: Patent, no abnormalities. Basilar artery: Patent, no abnormalities. Posterior cerebral arteries: Patent, no abnormalities. Normal Variants: ACom: Patent. PComs: Patent on the right. Not visualized on the left. Vertebral arteries: Co-dominant. The major dural venous sinuses are grossly patent. Additional findings: The li ngual tonsils are prominent. There are mild to moderate degenerative changes throughout the spine. IMPRESSION: 1. Mild right carotid bulb noncalcified plaque without significant stenosis. 2. Minimal bilateral carotid siphon calcification without significant stenosis. 3. No other cervical or intracranial CTA abnormalities. No large vessel occlusion. Signed by: Dr. Adam Gilliland M.D. on 11/05/2018 6:31 PM Dictated By: ADAM GILLILAND MD 30 Transcribed By: AMY on 11/05/181830 COPY TO: ALEKSANDR DRUMMOND MD MRA HEAD WO 2018-11-05 14:01:00 [place] [address] Patient Name: JESI CANADA MR #: [id number] : 1965 Age/Sex: 52/M Req #: [id number] Adm Physician: ABEBE DENNISON MD Ordered by: ABEBE DENNISON MD Report #: [id number] Location: MED/SURG Room/Bed: [facility] Procedure: [id number] MRI/MRA HEAD WO Exam Date: 11/05/18 Exam Time: 1113 REPORT STATUS: Signed Jesi [place] : 1965 Accession number: [id number] MRA HEAD WO CONTRAST HISTORY: Right arm numbness COMPARISON: Concurrent MRI of the brain and MRA of the neck TECHNIQUE: Axial 3D intracranial gkij-uu-tmtlvh MRA images were obtained without contrast. Maximum intensity projection images were created. FINDINGS: Carotid arteries: No flow abnormalities in the intracranial internal carotid arteries. Normal A1 and M1 segments. Vertebrobasilar Circulation: Right vertebral artery: No flow abnormalities. Left vertebral artery: No flow abnormalities. Basilar artery: No flow abnormalities. Posterior cerebral arteries: No flow abnormalities. Normal Variants: ACom: Not clearly visualized. PComs: Not visualized. Vertebral arteries: Co-dominant. IMPRESSION: No intracranial MRA abnormalities. Signed by: Dr. Adam Gilliland M.D. on 11/05/2018 2:54 PM Dictated By: ADAM GILLILAND MD 53 Transcribed By: AMY on 11/05/181453 COPY TO: ABEBE DENNISON MD MRI NECK WO 2018-11-05 14:00:00 [place] [address] Patient Name: JESI CANADA MR #: [id number] : 1965 Age/Sex: 52/M Req #: [id number] Adm Physician: ABEBE DENNISON MD Ordered by: ABEBE DENNISON MD Report #: [id number] Location: MED/SURG Room/Bed: [facility] Procedure: [id number] MRI/MRI NECK WO Exam Date: 11/05/18 Exam Time: 1113 REPORT STATUS: Signed Jesi [place] : 1965 Accession number: [id number] MRA CAROTID WO CONTRAST HISTORY: Right arm numbness COMPARISON: Concurrent MRI of the brain, head CT 11/05/2018 TECHNIQUE: Axial 2-D cervical intracranial qrjk-dg-sbxako MRA images were obtained without contrast. Maximum intensity projection images were created. If present, any cervical carotid stenosis will be measured as a percentage relative to the grayling artery distal to the stenosis. FINDINGS: Right Carotid: No flow abnormalities. Left Carotid: No flow abnormalities. Right vertebral artery: No flow abnormalities. Left vertebral artery: No flow abnormalities. IMPRESSION: No cervical MRA abnormalities. Signed by: Dr. Adam Gilliland M.D. on 11/05/2018 2:54 PM Dictated By: ADAM GILLILAND MD 53 Transcribed By: AMY on 11/05/181453 COPY TO: ABEBE DENNISON MD MRI BRAIN WO 2018-11-05 14:00:00 [facility] [address] [place] [address] Patient Name: JESI CANADA MR #: [id number] : 1965 Age/Sex: 52/M Req #: [id number] Adm Physician: ABEBE DENNISON MD Ordered by: LELA SWAIN MD Report #: [id number] Location: MED/SURG Room/Bed: [facility] Procedure: [id number] MRI/MRI BRAIN WO Exam Date: 11/05/18 Exam Time: 1113 REPORT STATUS: Signed JESI CANADA 1965 Accession number: [id number] MRI BRAIN WO HISTORY: Right arm numbness COMPARISON: Head CT 11/05/2018 at 144 TECHNIQUE: Sagittal T2, axial T2, axial T1, axial T2/FLAIR, axial gradient echo (or susceptibility weighted), coronal T2/FLAIR, and axial diffusion weighted MR images of the brain were obtained without contrast. DISCUSSION: Scalp/bone marrow: Unremarkable. Brain sulci: Appropriate for patient's age. Ventricles: Normal in size and configuration. No hydrocephalus. Extra-axial spaces: No masses or fluid collections. Parenchyma: Multiple small juxtacortical foci of diffusion restriction (bright on DWI, dark on ADC) along the upper left perirolandic region and left centrum semiovale compatible with acute ischemia. This is in the left MCA-NATHAN external border zone. No other diffusion restricting abnormalities. A few scattered T2/FLAIR hyperintense foci throughout the supratentorial white matter are likely chronic microvascular ischemic changes. There is an old lacunar infarct in the right benz radiata. There is also an old lacunar infarct in the right frontal deep white matter. Otherwise, no mass or hemorrhage. Vessels: Normal flow voids in major arteries and veins. Sellar/Suprasellar region: No abnormalities. Craniocervical junction: No abnormalities. Incidental findings: Mild bilateral ethmoid air cell mucosal thickening is present. IMPRESSION: 1. Multifocal juxtacortical acute watershed ischemia along the upper left perirolandic region and left centrum semiovale (left MCA-NATHAN external border zone). 2. Mild supratentorial chronic microvascular ischemic change. 3. Old right benz radiata and right frontal deep white matter lacunar infarcts. Signed by: Dr. Adam Gilliland M.D. on 11/05/2018 2:54 PM Dictated By: ADAM GILLILAND MD 53 Transcribed By: AMY on 11/05/181453 COPY TO: LELA SWAIN MD MRI SPINE CERVICAL WO 2018-11-05 13:45:00 [place] [address] Patient Name: JESI CANADA MR #: [id number] : 1965 Age/Sex: 52/M Req #: [id number] Adm Physician: ABEBE DENNISON MD Ordered by: ABEBE DENNISON MD Report #: [id number] Location: MED/SURG Room/Bed: [facility] Procedure: [id number] MRI/MRI SPINE CERVICAL WO Exam Date: 11/05/18 Exam Time: 1113 REPORT STATUS: Signed Jesi [place] : 1965 Accession number: [id number] MRI CERV SPINE W/O HISTORY: Right arm numbness COMPARISON: Cervical spine CT 11/05/2018 TECHNIQUE: Sagittal T1, sagittal T2, sagittal inversion recovery, axial T2, axial T1, and axial T2 GRE weighted MR images of the cervical spine were obtained without intravenous contrast. Motion artifacts obscure some details. DISCUSSION: Alignment: Slight straightening of the cervical lordosis. No scoliosis. Vertebrae: No definite evidence for fractures, infection, or neoplasm. Cervicomedullary junction: No abnormalities. Spinal cord: Normal in signal and morphology from the foramen magnum through T2-T3. Soft tissues: No signal abnormalities. Mild multilevel disc degeneration is present without significant canal or foraminal stenosis. Mild to moderate atlantoaxial arthrosis is present as well. IMPRESSION: 1. No acute osseous abnormality. 2. Mild multilevel disc degeneration without significant canal or foraminal stenosis. Signed by: Dr. Adam Gilliland M.D. on 11/05/2018 2:55 PM Dictated By: ADAM GILLILAND MD 295 Transcribed By: AMY on 11/05/18 7381 COPY TO: ABEBE DENNISON MD CT CERVICAL SPINE WO 2018-11-05 02:25:00 [place] [address] Patient Name: JESI CANADA MR #: [id number] : 1965 Age/Sex: 52/M Req #: [id number] Adm Physician: Ordered by: LELA SWAIN MD Report #: [id number] Location: ER Room/Bed: Procedure: [id number] CT/CT CERVICAL SPINE WO Exam Date: Exam Time: REPORT STATUS: Signed History: Right upper extremity numbness. Comparison studies: None Technique: Axial images were obtained through the cervical region.. Coronal and sagittal images reconstructed from the axial data. Dose modulation, iterative reconstruction, and/or weight based adjustment of the mA/kV was utilized to reduce the radiation dose to as low as reasonably achievable. Intravenous contrast: None Findings: Fractures: None. Soft tissue injuries: None. Atlantoaxial articulation: Intact. Alignment: Loss of normal cervical lordosis is either positional or due to muscle spasm. No scoliosis. Cervicomedullary junction: No abnormalities. The foramen magnum is patent. Soft tissues: No abnormalities. Vertebrae: 6 mm well-corticated osseous fragments superior to the tip of the odontoid process may represent a sequelae of prior trauma/os odontoideum. No fractures, infection or neoplasm. Degenerative changes: C3-C4: Bilateral mild facet arthrosis without significant foraminal stenosis. No significant canal or foraminal stenosis. IMPRESSION: 1. No acute cervical spine fracture or dislocation. Loss of normal cervical lordosis is either positional or due to muscle spasm. 2. Ligament, spinal cord and or vascular abnormalities cannot be excluded on the basis of this examination. Signed by: Dr. Taylor Bobby M.D. on 11/05/2018 2:29 AM Dictated By: TAYLOR BOBBY MD 8 Transcribed By: AMY on 11/05/18228 COPY TO: LELA SWAIN MD CT BRAIN WO 2018-11-05 02:21:00 [place] [address] Patient Name: JESI CANADA MR #: [id number] : 1965 Age/Sex: 52/M Req #: [id number] Adm Physician: Ordered by: LELA SWAIN MD Report #: [id number] Location: ER Room/Bed: Procedure: [id number] CT/CT BRAIN WO Exam Date: Exam Time: REPORT STATUS: Signed EXAMINATION: Head CT without contrast. HISTORY:Right upper extremity numbness. COMPARISON:None. TECHNIQUE: Multidetector axial images were obtained from the foramen magnum to the vertex without contrast. The images were reconstructed using brain and bone algorithms. Thin section brain images were reformatted into coronal and sagittal planes. Dose modulation, iterative reconstruction, and/or weight based adjustment of the mA/kV was utilized to reduce the radiation dose to as low as reasonably achievable. Intravenous contrast: None IMAGE QUALITY: Suboptimal evaluation particularly of the skull base and posterior fossa structures due to streak artifacts. FINDINGS: Skull/scalp: No lytic or blastic. lesions. No surgical changes. Parenchyma: Focal hypodensity in right caudate head represents old lacunar infarct. No acute hemorrhage, mass or acute major vascular territorial infarct. Arteries: No density suggestive of thrombosis. Dural sinuses: No abnormal density suggestive of thrombosis. Ventricles: No hydrocephalus or displacement. Extra- axial spaces: No abnormal density. Brain volume: Normal for age. Craniocervical junction: No mass, Chiari malformation, or basilar invagination. Sella: No mass. Paranasal/mastoid sinuses: Imaged portions unremarkable. IMPRESSION: No acute intracranial abnormality, particularly no acute hemorrhage, mass or acute major vascular territorial infarct. Old lacunar infarct in right caudate head. Signed by: Dr. Taylor Bobby M.D. on 11/05/2018 2:25 AM Dictated By: TAYLOR BOBBY MD 4 Transcribed By: AMY on 11/05/18224 COPY TO: LELA SWAIN MD
[2019-03-27 09:20] VITALS: BP 116/89
--- NOTE | 2019-03-27 11:26 | Operative Report ---
DATE OF PROCEDURE: 03/27/2019 SURGEON: Yaniv Rico MD TRACK OILER: Eulalio Avendano PA-C PREOPERATIVE DIAGNOSES: 1. Right carpal tunnel syndrome. 2. Right cubital tunnel syndrome. POSTOPERATIVE DIAGNOSES: 1. Right carpal tunnel syndrome. 2. Right cubital tunnel syndrome. PROCEDURES: 1. Right endoscopic carpal tunnel release. 2. Right ulnar nerve decompression in situ. INDICATIONS: The patient is a 53-year-old gentleman, who has clinic signs and symptoms consistent with right carpal tunnel syndrome and right cubital tunnel syndrome. The findings and options have been discussed. We plan on a right carpal tunnel release and a right ulnar nerve decompression. The risks and benefits and recovery were all explained. He states he understands and wishes to proceed. DESCRIPTION OF PROCEDURE: The patient was brought to the operating room and placed under general anesthetic. His right upper extremity was prepped and draped in a sterile manner. A preoperative time-out was performed. The extremity was exsanguinated and the proximal tourniquet was inflated to 250 mmHg. Initial attention was directed towards the right wrist. An incision was made over the flexor crease of the right wrist. The palmaris longus was retracted to the radial side of the wound. The flexor retinaculum was elevated and incised. An elevator was used to incise the undersurface of the transverse carpal ligament. Dilators were placed and the hook of the hamate was palpated. The MicroAire endoscope was placed into the carpal tunnel. The undersurface of the transverse carpal ligament was cleanly visualized without evidence of soft tissue interposition. The knife was deployed and the ligament was cut from distal to proximal. Care was taken to ensure a full-thickness release. The proximal retinaculum was incised under direct visualization. The incision was closed with two interrupted nylon stitches. A 1 mL of 0.5% Marcaine without epinephrine was injected around the incision. Attention was then directed towards the elbow. A curvilinear incision was made over the posteromedial aspect of the elbow. The medial epicondyle was palpated. The ulnar nerve was carefully exposed. A [place] drain was gently placed around the nerve. The nerve was freed up extending into the muscle belly of the flexor carpi ulnaris as proximal as needed. The nerve was completely decompressed. The wound was irrigated and closed with subcuticular Vicryl and a running nylon stitch. Approximately 3 mL of 0.5% Marcaine with epinephrine were placed around the incision. A sterile bandage and a posterior splint were applied. There was no blood loss. All needle and sponge counts were correct. Yaniv Rico MD DR/ANA /[id number]
== END | disposition home or self-care (01) ==
LOC: OR 05:18
PROVIDERS: ATTEND Specialist
DX: G56.01 Carpal tunnel syndrome, right upper limb (principal); G56.21 Lesion of ulnar nerve, right upper limb; I69.351 Hemiplegia and hemiparesis following cerebral infarction affecting right dominant side; E78.00 Pure hypercholesterolemia, unspecified; F17.290 Nicotine dependence, other tobacco product, uncomplicated; Z88.0 Allergy status to penicillin; Z01.810 Encounter for preprocedural cardiovascular examination; Z79.82 Long term (current) use of aspirin
CPT/HCPCS: 29848; 64718; 93005; J1100; J2001; J2250; J2405; J2704

== ENCOUNTER 2021-04-29 19:22 | Emergency (ER) | payer BC ==
[~2021-04-29] VITALS: Ht 177.8 cm; Wt 88.5 kg
[~2021-04-29 19:22] MED LIST changes: -BUPIVACAINE HCL 0.5% INJ 30 ML VIAL INJ ONE; -CLINDAMYCIN PHOS 900MG/ 50ML 50 ML IV ONE; -DEXAMETHASONE SOD PHOS INJ 4 MG/ML VIAL ONE; -FENTANYL CITRATE/PF 100MCG/2 ML INJ ONE; -LIDOCAINE HCL 2% LOCAL INJ 5 ML SDV VIAL INJ ONE; -MIDAZOLAM HCL 2 MG/2 ML VIAL ONE; -ONDANSETRON HCL INJ 2MG/ML 2ML 2 MG/ML VIAL ONE; -PROPOFOL IV EMULSION 10 MG/ML 20 ML VIAL ONE; -SEVOFLURANE INHAL SOLN 250 ML PEN BTL ONE
[2021-04-29] MEDS ORDERED: IBUPROFEN 600 MG TAB PO STA (19:41)
[2021-04-29] MEDS ORDERED: IBUPROFEN 600 MG TAB ONE (19:53)
== END 2021-04-29 22:58 | disposition home or self-care (01) ==
LOC: ER 22:55
DX: R50.9 Fever, unspecified (principal); R05 Cough; J40 Bronchitis, not specified as acute or chronic; I10 Essential (primary) hypertension; F17.210 Nicotine dependence, cigarettes, uncomplicated
CPT/HCPCS: 71045; 99283; U0002